=== PATIENT | female | born 1955 | race Caucasian/White ===

== ENCOUNTER 2024-01-24 14:18 | Emergency (ER) | payer MEDICARE, SELFPAY ==
[2024-01-24 14:20] VITALS: BP 139/77; PULSE 87; RESP 22; TEMP 35.9; O2SAT 97; BMI 25.2
[2024-01-24 16:12] LABS: Mucous, Urine 0 SEEN /hpf (<or=2+)
--- NOTE | 2024-01-24 16:17 | ED.VIS.GI ---
HPI HPI - GI History of Present Illness Chief Complaint: Flank Pain Informant: patient Abdominal Pain/Flank Pain Onset: Today and Hours (4) Context: Sudden Onset Timing: Continuous Quality: Cramping and Sharp Location: LUQ, LLQ and Left Flank Worsened by: Nothing Relieved by: - (Analgesics) Nausea/Vomiting/Emesis GI Symptom: Positive for Nausea and Vomiting Quality: Positive for Nonbilious; Negative for Blood streaks, Coffee ground or Hematemesis Diarrhea/Melena/Hematochezia GI Symptom: Negative for Diarrhea, Melena or Hematochezia Associated Symptoms Associated Symptoms: Positive for Hematuria; Negative for Dysuria or Frequency Narrative Narrative: Patient presents with abdominal and flank pain that began approximately 4 hours prior to arrival. Patient states it began rather suddenly. Patient states it has been constant. Patient describes the pain as sharp and cramping. Patient states it is mainly over the left side of her abdomen and left flank. Patient states that nothing makes it worse. Patient states that she took a pain pill while driving to the emergency department which has helped. Patient admits to some nausea and vomiting. Patient denies any diarrhea, melena, or hematochezia. Patient states that couple days ago she thought she noted some blood in her urine but was not having any pain at that time. [facility] Medical History (Updated 01/24/24 @ 18:[address] Solitario Smart DO) Peripheral arterial disease Kidney stones Home Medications ?Medication ?Instructions ?Recorded ?Last Taken ?Type amoxicillin 875 mg-potassium 875 mg PO Q12H #20 TABLETS 01/24/24 Unknown Rx clavulanate 125 mg tablet hydrocodone-acetaminophen 5-325mg 1 tab PO Q6H PRN PRN Pain 3 days 01/24/24 Unknown Rx 5mg-325mg #10 TABLETS Allergy/AdvReac Type Severity Reaction Status Date / Time ciprofloxacin Allergy Intermediate Rash Verified 01/24/24 14:22 Surgical History (Updated 01/24/24 @ 16:[address] Solitario Smart DO) S/P arterial stent Social History (Updated 01/24/24 @ 16:[address] Solitario Smart DO) Smoking Status: Current every day smoker tobacco type: cigarettes alcohol intake: current alcohol intake frequency: 0-2 drinks per day ROS ROS ED Constitutional Constitutional ED: Reports fever(s) and subjective; Denies chills Eyes Eyes: Denies blurry vision or change in vision ENT ENT ED: Denies rhinorrhea or sore throat Cardiovascular Cardiovascular: Denies chest pain or palpitations Respiratory/Chest Respiratory/Chest: Denies cough or dyspnea Gastrointestinal Gastrointestinal: Reports abdominal pain, nausea and vomiting Genitourinary Genitourinary ED: Reports hematuria; Denies dysuria Musculoskeletal Musculoskeletal: Reports back pain; Denies neck pain Integumentary Denies abscess or rash Neurologic Neurologic: Denies headache(s) or weakness Allergic/Immunologic Allergic/Immunologic ED: Denies mouth swelling or urticaria EXAM Physical Exam Const Vital Signs: 01/24/24 14:20 01/24/24 16:18 Temperature 96.6 F L Temperature Source Temporal Pulse Rate 87 87 Respiratory Rate 22 H 17 Blood Pressure 139/77 H 158/89 H Blood Pressure Mean 97 112 Pulse Ox 97 98 Oxygen Delivery Method Room Air Room Air Positive well nourished and well developed General Appearance ED: well developed and NAD HEENT Reports moist mucous membranes Neck supple and no JVD Resp normal respiratory effort and clear to auscultation bilaterally Cardio regular rate and regular rhythm GI non-distended Palpation: soft and tender LLQ and LUQ; Negative for guarding or rebound tenderness present Back/Spine General Back: CVA tenderness left Extremity full ROM General Extremety ED: Negative for edema or tenderness General Extremity: Negative for edema Neuro CN's II-XII intact bilaterally, moves all extremities and no sensory deficits noted Sensorium / Orientation: alert Motor Exam: strength 5/5 throughout Psych mental status grossly normal MDM MDM MDM Narrative Medical decision making narrative: Differential diagnosis includes ureteral calculus, pyelonephritis, diverticulitis, colitis, ovarian cyst, bowel obstruction, perforation, and pancreatitis. CT scan of the abdomen pelvis will be obtained to assess for ureteral calculus, bowel obstruction, and perforation. CBC will be obtained to assess for leukocytosis and anemia. Comprehensive metabolic profile will be obtained to assess for hepatic function, renal function, and electrolyte abnormality. Lipase will be obtained to assess for pancreatitis. Urinalysis will be obtained to assess for urinary tract infection and hematuria. Lab Data Attestation: I reviewed the patient's lab results. Lab results narrative: CBC was reviewed. There is a leukocytosis of 18.6. Hemoglobin was 16.7 and hematocrit is 51.3. Comprehensive metabolic profile was reviewed. Potassium was low at 3.0. AST was slightly elevated at 58 and ALT was slightly elevated at 84. Glucose was slightly elevated at 117. The remainder was essentially within normal limits. Lipase was reviewed and was normal at 22. Urinalysis was reviewed. There were urine ketones of 150. Occult blood was 250 with 10-25 red blood cells. There are positive nitrites. Leukocyte esterase was 500 with 25-50 white blood cells. There is 1+ bacteria. Labs: Laboratory Results - last 24 hr 01/24/24 01/24/24 15:55 15:56 WBC 18.6 H RBC 5.44 H Hgb 16.7 H Hct 51.3 H MCV 94.3 MCH 30.7 MCHC 32.6 RDW Std Deviation 43.9 RDW Coeff of Dneiz 12.7 Plt Count 179 MPV 11.3 Immature Gran % (Auto) 0.500 Neut % (Auto) 89.6 H Lymph % (Auto) 5.2 L [place]oll[place] % (Auto) 4.4 Eos % (Auto) 0.1 Baso % (Auto) 0.2 Absolute Neuts (auto) 16.6 H Absolute Lymphs (auto) 0.96 Nucleated RBC % 0 Sodium 138 Potassium 3.0 L Chloride 103 Carbon Dioxide 27.0 Anion Gap 8 BUN 19 H Creatinine 0.80 Estim Creat Clear Calc 64.54 Est GFR (MDRD) Af Amer 91 Est GFR (MDRD) Non-Af 75 BUN/Creatinine Ratio 23.7 H Glucose 117 H Calcium 10.0 Total Bilirubin 0.80 AST 50 H ALT 84 H Alkaline Phosphatase 103 Total Protein 7.8 Albumin 4.1 Globulin 3.7 Albumin/Globulin Ratio 1.1 Lipase 22 Urine Color Yellow Urine Clarity Cloudy Urine pH 5.0 Ur Specific [place] 1.030 Urine Protein 30 H Urine Glucose (UA) Normal Urine Ketones 150 A* Urine Occult Blood 250 H Urine Nitrite Positive H Urine Bilirubin Negative Urine Urobilinogen 1 H Ur Leukocyte Esterase 500 H Urine RBC 10-25 SEEN Urine WBC 25-50 SEEN Ur Squamous Epith Cells 0-5 SEEN Calcium Oxalate Crystal 1+ Urine Bacteria 1+ Urine Mucus 0 SEEN Radiography Diagnostic Testing: Clinical Impression(s) from Imaging Studies Abdomen/Pelvis CT 01/24/24 16:24 IMPRESSION: Moderate to severe left hydronephrosis secondary to large calculus in the mid ureter measuring approximately 5 mm in size. Tiny nonobstructing right renal calculus. Cholelithiasis without evidence for acute cholecystitis Electronically Signed: Ben Sanford MD at 17:11 EDT , CT scan of the abdomen pelvis was obtained. There is moderate to severe left hydronephrosis secondary to large calculus in the mid ureter measuring approximately 5 mm. There is cholelithiasis but no evidence of cholecystitis. There is a nonobstructing right renal calculus. This was interpreted by the radiologist was also independently reviewed by myself. Additional Tests and Interventions Additional Tests or Interventions: Urine culture was ordered. Treatment and Re-Evaluation :: Patient was given IV fluids, Toradol, morphine, and Zofran. Patient was feeling better on reevaluation. Patient was advised of her findings. Case was discussed with Dr. Shetty. He stated that the patient can have a trial of outpatient treatment with oral antibiotics and analgesics. Patient would prefer to go home. Patient was advised that any fevers or chills, nausea, vomiting, or if worse in any way, she should return to the emergency department. Patient was given a prescription for a short course of [place] and a prescription for Augmentin. Patient was instructed to follow-up with urology in 5 to 7 days. Patient was instructed return if worse in any way. Patient understood and was agreeable with the plan. All questions were answered. Discharge Plan Triage Chief Complaint: Flank Pain ED Provider: Solitario Smart Dx/Rx/DC Orders Clinical Impression: Left ureteral calculus, Pyelonephritis Instructions: ED Pyelonephritis, Female (Adult), ED Kidney Stone with Pain Prescriptions: New hydrocodone-acetaminophen 5-325 mg tablet 1 tab PO Q6H PRN PRN (Reason: Pain) 3 Days Qty: 10 0RF amoxicillin-pot clavulanate 875-125 mg tablet 875 mg PO Q12H Qty: 20 0RF Primary Care Provider: STEPHEN DUKE Referrals: STEPHEN DUKE [Other] Wang Shetty MD [Med Staff - Active Staff] - 3-5 Days Print Language: Luxembourgish Disposition Disposition: Home, Self Care
[2024-01-24 16:18] VITALS: BP 158/89; PULSE 87; RESP 17; O2SAT 98
[2024-01-24 16:18] LABS: Color, Urine Yellow (Yellow); Glucose, Dipstick Normal (Normal); Leukocyte Esterase-Dipstick 500 /ul (Negative); Nitrite-Dipstick Positive (Negative); Occult Blood-Urine 250 /ul (Negative); Protein-Dipstick 30 mg/dl (Negative); Urine Bilirubin Dipstick Negative (Negative); Urine Clarity Cloudy (Clear); Urine Urobilinogen 1 mg/dl (Normal)
--- NOTE | 2024-01-24 16:24 | CT_ITS ---
STUDY: CT ABDOMEN AND PELVIS WITHOUT CONTRAST REASON FOR EXAM: Female, 69 years old. Pain RADIATION DOSAGE (If Supplied By Facility): CTDIvol = ( 9.16 ) mGy, DLP = ( 444.11 ) mGycm TECHNIQUE: Transaxial images were obtained from the dome of the diaphragm to the symphysis pubis without oral contrast, and without intravenous contrast. Sagittal and coronal images were reconstructed. Individualized dose optimization techniques were used for this CT. COMPARISON: None. FINDINGS: Mild bibasilar interstitial thickening.. The visualized portions of the heart are within normal limits except for possible lipoma of the interatrial septum of uncertain clinical significance. This may be further assessed with echocardiography or MRI if clinically warranted The liver is enlarged and fatty infiltrated without mass or bile duct dilatation. Tiny calcified gallbladder without evidence for acute pericholecystic inflammation . Normal spleen. Normal pancreas. Normal bilateral adrenal glands. Tiny nonobstructing right renal calculus. No evidence for renal obstruction or mass.. Tiny nonobstructing left renal calculus. Moderate to severe left renal obstruction with stranding in the perinephric fat as well as prominence of the left ureter secondary to calculus in the mid ureter measuring approximately 5 mm in size Normal visualized stomach. Normal small intestine. Minor diverticular changes of sigmoid colon without evidence for acute diverticulitis The appendix is visualized and appears normal. Atherosclerotic changes of the aorta without evidence for aneurysm. Bilateral common iliac grafts are noted Normal inferior vena cava. Normal retroperitoneum. Incompletely distended thick walled bladder likely of no significance. Normal abdominal wall. Lumbar spine demonstrates mild spondylosis. CT/Abdomen/Pelvis without Cont IMPRESSION: Moderate to severe left hydronephrosis secondary to large calculus in the mid ureter measuring approximately 5 mm in size. Tiny nonobstructing right renal calculus. Cholelithiasis without evidence for acute cholecystitis Electronically Signed: Ben Sanford MD at 17:11 EDT ,
[2024-01-24 16:31] LABS: Ketone-Dipstick 150 mg/dl (Negative)
[2024-01-24 16:33] LABS: White Blood Cells 25-50 SEEN /hpf (0-5)
[2024-01-24 16:34] LABS: Bacteria 1+ /hpf (None Seen); Calcium Oxalate Crystals Ur 1+ /hpf (<or=2+); Red Blood Cells-Urine 10-25 SEEN /hpf (0-5); Squamous Epithelial Cells - UA 0-5 SEEN /hpf (5-10)
[2024-01-24] MEDS: Ondansetron 4 MG/2 ML Vial IV (16:36)
[2024-01-24] MEDS: 0.9% Normal Saline (1000mL) 1,000 ML 999 ML IV (16:36)
[2024-01-24] MEDS: Ketorolac 30 MG/ML Syringe 15 MG IV (16:37)
[2024-01-24] MEDS: Morphine 4 MG/ML Syringe IV (16:38)
[2024-01-24 16:48] LABS: Absolute Lymphocyte Count 0.96 X10^3/uL (0.83-4.51); Absolute Neutrophil Count 16.6 X10^3/uL (2.0-7.7); Basophil# 0.04 X10^3/uL; Basophil% 0.2 % (0-1); Eosinophil# 0.01 X10^3/uL; Eosinophils% 0.1 % (0-5); Hematocrit 51.3 % (37-47); Hemoglobin 16.7 g/dL (12.0-15.0); Lymphocyte # 0.96 X10^3/ul (0.83-4.51); Lymphocyte % 5.2 % (19-41); Mean Corp Hgb Conc 32.6 g/dL (32-36); Mean Corpuscular Hgb 30.7 pg (27.0-32.0); Mean Corpuscular Volume 94.3 fL (81-99); Mean Platelet Vol. 11.3 fl (6.2-12.0); Monocyte# 0.81 X10^3/uL; Monocyte% 4.4 % (0-10); NRBC Flagged by Analyzer 0 % (0-5); Neutrophil # 16.64 X10^3/uL (2.7-7.7); Neutrophil % 89.6 % (47-70); Platelet Count 179 K/mm3 (150-450); RBC Distribution Width CV 12.7 % (11.6-14.6); RBC Distribution Width SD 43.9 fl (35.1-43.9); Red Blood Count 5.44 M/mm3 (4.2-5.4); White Blood Count 18.6 K/mm3 (4.4-11.0)
[2024-01-24 17:13] LABS: ALB/GLOB Ratio 1.1 RATIO (0.9-2.4); AST(SGOT) 50 U/L (15-37); Alanine Aminotransfer ALT/SGPT 84 U/L (13-56); Albumin, Serum 4.1 g/dL (3.2-5.0); Alkaline Phosphatase 103 U/L (45-117); Anion Gap 8 (5-15); BUN 19 mg/dL (7-18); BUN/Creat Ratio 23.7 RATIO (10-20); Chloride 103 mmol/L (98-107); EST Glomerular Filtration Rate 75 mL/min (>60); Est Glom Filt Rate - Afr Amer 91 mL/min (>60); Estimated Creatinine Clearance 64.54 ml/min; Globulin 3.7 g/dL (2.2-4.2); Glucose 117 mg/dL (74-106); Lipase 22 U/L (13-75); Protein, Total 7.8 g/dL (6.4-8.2); Sodium Level 138 mmol/L (136-145)
[2024-01-24 18:00] VITALS: BP 148/87; PULSE 88; RESP 18; O2SAT 98
[2024-01-24 18:12] VITALS: BP 148/87; PULSE 81; RESP 17; TEMP 36.8; O2SAT 98
[2024-01-24] MEDS: Ceftriaxone 1 GM/50 ML BAG IV (18:31)
[2024-01-24] MEDS: Potassium Chloride Oral Tablet 20 MEQ 40 MEQ PO (18:50)
== END 2024-01-24 18:54 | disposition home or self-care (01) ==
PROVIDERS: Emergency Provider Emergency Medicine; Visit Provider Emergency Medicine
DX: N13.2 Hydronephrosis with renal and ureteral calculous obstruction (principal); F17.210 Nicotine dependence, cigarettes, uncomplicated; N12 Tubulo-interstitial nephritis, not specified as acute or chronic
CPT/HCPCS: 74176; 80053; 81001; 83690; 85025; 87040; 87077; 87086; 87088; 87186; 96365; 96375; 96376; 99282; J7030; A4216; J2405

== ENCOUNTER 2024-02-11 20:01 | Inpatient (IN) | payer MEDICARE, SELFPAY ==
[2024-02-11 20:02] VITALS: BP 110/60; PULSE 89; RESP 18; TEMP 36.7; O2SAT 93; BMI 25.2
--- NOTE | 2024-02-11 20:32 | CT_ITS ---
EXAM: CT ABDOMEN AND PELVIS WITHOUT INTRAVENOUS CONTRAST CLINICAL INDICATION: left flank pain TECHNIQUE: Helically acquired images were obtained of the abdomen and pelvis without intravenous contrast. This CT exam was performed using one or more of the following dose reduction techniques: automated exposure control, adjustment of the mA and/or kV according to patient size, and/or use of iterative reconstruction technique. RADIATION DOSE: Total DLP: 370.32 mGy-cm. COMPARISON: Abdomen CT of 01/24/2024 FINDINGS: LOWER THORAX: Dependent atelectasis is present bilaterally. No pleural effusion. No coronary artery calcification is visualized. 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 No significant pericardial effusion. ABDOMEN: LIVER: Severe fatty infiltration of the liver is demonstrated. GALLBLADDER AND BILE DUCTS: Gallbladder remains normal in size and contains a tiny calcified stone. No findings of acute cholecystitis or biliary duct ductal dilatation. PANCREAS: Unremarkable. No focal cystic mass. SPLEEN: Borderline enlarged measuring 12.5 cm in cephalocaudal dimension. No focal cystic or solid mass. ADRENALS: Unremarkable. No nodules. KIDNEYS AND URETERS: Left kidney remains enlarged and edematous, with perirenal stranding. Severe left hydronephrosis is present, and the degree of hydronephrosis has increased since the prior exam. A 5 mm lobulated obstructing stone is again seen within the middle third of the left ureter; this stone has moved distally within the left ureter by about 2 cm since the prior study. A second stone measuring 4 mm in length is seen within the dependent portion of the dilated mid left ureter proximal to the obstructing ureteral stone, and this left second left ureteral stone is nonobstructing. Punctate nonobstructing stone is again noted within the upper pole collecting system of the left kidney. Right kidney remains normal in size. A punctate nonobstructing stone is seen within the right renal lower pole collecting system. No right-sided hydronephrosis or right ureteral stone. STOMACH AND BOWEL: Unremarkable. No stomach or bowel distention. No focal inflammatory change. PELVIS: APPENDIX: No evidence of acute appendicitis. BLADDER: Partially distended urinary bladder is unremarkable. REPRODUCTIVE: Uterus is normal in size. No adnexal mass. ABDOMEN and PELVIS: INTRAPERITONEAL SPACE: Unremarkable. No ascites or other fluid collection. No free air. BONES/JOINTS: No acute osseous abnormality. Mild lumbar degenerative spurring. Lumbar facet arthritis. No acute osseous abnormality. No suspicious lytic or blastic abnormality. SOFT TISSUES: Unremarkable. No discrete abdominal or pelvic wall hernia. VASCULATURE: Unremarkable. Abdominal aorta is non-dilated. LYMPH NODES: No enlarged lymph nodes. CT/Abdomen/Pelvis without Cont IMPRESSION: 5 mm obstructing stone again noted within the middle third of the left ureter; this ureteral stone has moved distally by about 2 cm since the prior CT of 01/24/2024. Degree of left-sided hydronephrosis has increased with severe left hydronephrosis now present. Additional nonobstructing stone noted within the dilated left ureter. Punctate nonobstructing stone noted within each intrarenal collecting system. Cholelithiasis without evidence for cholecystitis. Electronically Signed: Francisco Benedict MD at 22:50 EDT ,
--- NOTE | 2024-02-11 20:33 | EDS_ITS ---
HPI History of Present Illness Chief Complaint: Flank Pain Detail of Chief Complaint: Left flank pain Informant: patient Narrative Narrative: Patient presents with left-sided flank pain that started 2 weeks ago. She was seen in the emergency department here and diagnosed with a kidney stone is 5 mm and apparently started on antibiotics. Patient was traveling through our town visiting her sister and then going up the [facility] back. She has continued to have pain since that time. She was seen in the hospital [place] [facility] [place] ago and diagnosed with a 9 mm stone in the swollen kidney and was told he could not do anything because they did not have urology apparently. Patient drove back 11 hours today to come to our hospital to be seen again. Patient complains of intermittent fever and nausea. [facility] Medical History (Updated 02/11/24 @ 23:[address] Osmany Colbert, DO) Peripheral arterial disease Kidney stones Home Medications ?Medication ?Instructions ?Recorded ?Last Taken ?Type hydrocodone-acetaminophen 5-325mg 1 tab PO Q6H PRN PRN Pain 3 days 01/24/24 Unknown Rx 5mg-325mg #10 TABLETS clopidogrel 75 mg tablet 75 mg PO DAILY 02/11/24 Unknown History rosuvastatin 40 mg tablet (Crestor) 10 mg PO DAILY cholesterol 02/11/24 Unknown History Allergy/AdvReac Type Severity Reaction Status Date / Time ciprofloxacin Allergy Intermediate Rash Verified 02/11/24 20:04 Surgical History S/P arterial stent Social History (Updated 01/24/24 @ 16:[address] Solitario Smart, DO) Smoking Status: Current every day smoker tobacco type: cigarettes alcohol intake: current alcohol intake frequency: 0-2 drinks per day ROS ROS ED Review of Systems ROS Unobtainable: other Constitutional Constitutional ED: Reports fever(s) and lethargy; Denies chills, sweats or weight loss Eyes Eyes: Denies blurry vision, change in vision or diplopia ENT ENT ED: Denies rhinorrhea or sore throat Cardiovascular Cardiovascular: Denies chest pain, orthopnea or racing heartbeat Respiratory/Chest Respiratory/Chest: Reports dyspnea and dyspnea on exertion; Denies cough, orthopnea or sputum Gastrointestinal Gastrointestinal: Reports abdominal pain; Denies diarrhea, nausea or vomiting Genitourinary Genitourinary ED: Denies dysuria, hematuria or urinary frequency Musculoskeletal Musculoskeletal: Denies arthralgias, back pain, myalgias or neck pain Integumentary Denies abscess, Abrasions or rash Neurologic Neurologic: Denies headache(s) or weakness Psychiatric Psychiatric: Denies anxiety, depression or suicidal thoughts Endocrine Endocrinology: Denies polydipsia, polyphagia or polyuria Hematologic/Lymphatic Hematologic/Lymphatic: Denies easy bleeding, easy bruising or lymphadenopathy Allergic/Immunologic Allergic/Immunologic ED: Denies mouth swelling, tongue swelling or urticaria EXAM Physical Exam Const Vital Signs: 02/11/24 20:02 02/11/24 22:04 02/11/24 23:00 Temperature 98.1 F 97.9 F 96.8 F L Temperature Source Temporal Oral Temporal Pulse Rate 89 74 73 Respiratory Rate 18 14 18 Blood Pressure 110/60 113/50 L 96/62 Blood Pressure Mean 76 71 73 Pulse Ox 93 90 91 Oxygen Delivery Method Room Air Room Air Room Air Positive well nourished and well developed General Appearance ED: well developed and NAD HEENT Reports TM's clear and moist mucous membranes normocephalic and atraumatic; Negative for trauma or tenderness Tympanic Membrane ED: Yes TM's clear Eyes PERRL and EOMs intact bilaterally General Eye ED: Negative for pale conjunctiva or scleral icterus Neck no lymphadenopathy, supple and no JVD General: Negative for tenderness Chest Wall inspection of chest normal and palpation of chest normal Chest: Negative for tenderness Resp normal respiratory effort and clear to auscultation bilaterally Effort and Inspection: Negative for respiratory distress or pain with movement Auscultation: Negative for rhonchi, wheezes or diminished lung sounds Cardio regular rate, regular rhythm, S1 normal heart sound, S2 normal heart sound and no murmurs Peripheral Pulses: pulses 2+ throughout GI normal to inspection, nondistended, normoactive bowel sounds, soft to palpation, non-distended and no masses GI Narrative: Mild diffuse tenderness over the left lower quadrant and left upper quadrant with some guarding. There is no rebound, rigidity, or pineal signs. No mass palpated. Back/Spine no thoracic nor lumbar tenderness; Negative for no CVA tenderness Back/Spine Narrative: CVA tenderness on the left. Extremity normal to inspection General Extremety ED: Negative for edema General Extremity: Negative for edema Neuro oriented x3, CN's II-XII intact bilaterally, no sensory deficits noted and gait normal Sensorium / Orientation: awake, alert, oriented to person, oriented to place and oriented to time Motor Exam: strength 5/5 throughout and strength abnormal Psych mental status grossly normal Skin no rashes or lesions noted and no wounds MDM MDM MDM Narrative Medical decision making narrative: Patient presents with left flank pain that she has had for about 2 weeks. Patient diagnosed with a kidney stone and pain is not resolved. She was seen in [place] 2 days ago and was told she had a 9 mm stone with hydro and she drove back today to be seen here. Pain is 10 out of 10. IV line established. Patient was medicated with Toradol and morphine and Zofran. CBC with differential obtained showed a white count of 12.1 with hemoglobin 13.3 and platelet count of 225. Chemistries unremarkable. Lactate was normal at 1.4. Urinalysis was positive for infection. Patient was started on Rocephin 1 g IV. Patient had a CT scan of the abdomen pelvis without contrast that showed a 5 mm obstructing stone again noted within the middle third of the left ureter this ureteral stone is moved distally by about [address] 2 weeks ago. There was degree of left-sided hydronephrosis that has increased and is now severe. Additional nonobstructing stone noted within the dilated left ureter. At this point discussed results with patient. I do not have urology coverage and recommended transfer to another facility for definitive care. Patient initially would prefer one of the [facility] however both [facility] and [facility] were not accepting transfers due to capacity. [facility] also not accepting transfers. It is noted that we have urology coverage starting at 7 AM tomorrow. Discussed case with hospitalist will evaluate patient for admission. I do not think patient is septic. Lab Data Labs: Laboratory Results - last 24 hr 02/11/24 20:42 WBC 12.1 H RBC 4.31 Hgb 13.3 Hct 39.7 MCV 92.1 MCH 30.9 MCHC 33.5 RDW Std Deviation 43.0 RDW Coeff of Deniz 12.6 Plt Count 225 MPV 9.9 Immature Gran % (Auto) 0.500 Neut % (Auto) 78.2 H Lymph % (Auto) 12.4 L [place] % (Auto) 7.9 Eos % (Auto) 0.5 Baso % (Auto) 0.5 Absolute Neuts (auto) 9.5 H Absolute Lymphs (auto) 1.51 Nucleated RBC % 0 Sodium 135 L Potassium 3.1 L Chloride 99 Carbon Dioxide 27.0 Anion Gap 9 BUN 14 Creatinine 0.92 Estim Creat Clear Calc 56.12 Est GFR (MDRD) Af Amer 78 Est GFR (MDRD) Non-Af 64 BUN/Creatinine Ratio 15.2 Glucose 121 H Lactic Acid 1.4 Calcium 9.1 Urine Color Yellow Urine Clarity Sl. Cloudy Urine pH 6.5 Ur Specific [place] 1.010 Urine Protein Negative Urine Glucose (UA) Normal Urine Ketones Negative Urine Occult Blood 25 H Urine Nitrite Positive H Urine Bilirubin Negative Urine Urobilinogen Normal Ur Leukocyte Esterase 500 H Urine RBC 0-5 SEEN Urine WBC 10-25 SEEN Ur Squamous Epith Cells 0-5 SEEN Urine Bacteria 2+ Urine Mucus 0 SEEN Radiography Diagnostic Testing: Clinical Impression(s) from Imaging Studies Abdomen/Pelvis CT 02/11/24 20:32 IMPRESSION: 5 mm obstructing stone again noted within the middle third of the left ureter; this ureteral stone has moved distally by about 2 cm since the prior CT of 01/24/2024. Degree of left-sided hydronephrosis has increased with severe left hydronephrosis now present. Additional nonobstructing stone noted within the dilated left ureter. Punctate nonobstructing stone noted within each intrarenal collecting system. Cholelithiasis without evidence for cholecystitis. Electronically Signed: Francisco Benedict MD at 22:50 EDT Reading Location ID and State: [facility] / [place] Tel , Service support , Discharge Plan Triage Chief Complaint: Flank Pain ED Provider: Osmany Colbert Dx/Rx/DC Orders Clinical Impression: Urolithiasis, Acute UTI, Leukocytosis Prescriptions: No Action clopidogrel 75 mg tablet 75 mg PO DAILY rosuvastatin [Crestor] 40 mg tablet 10 mg PO DAILY hydrocodone-acetaminophen 5-325 mg tablet 1 tab PO Q6H PRN PRN (Reason: Pain) 3 Days Qty: 10 0RF Primary Care Provider: NOT,DEFINED Referrals: NOT,DEFINED [Primary Care Provider] - Print Language: Mongolian Disposition Disposition: Acute Care [facility]
[2024-02-11] MEDS: Morphine 4 MG/ML Syringe IV (20:47)
[2024-02-11] MEDS: Ketorolac 15 MG/ML Vial IV (20:48)
[2024-02-11] MEDS: 0.9% Normal Saline (1000mL) 1,000 ML 150 ML IV (20:48)
[2024-02-11] MEDS: Ondansetron 4 MG/2 ML Vial IV (20:48)
[2024-02-11 21:00] LABS: Mucous, Urine 0 SEEN /hpf (<or=2+)
[2024-02-11 21:01] LABS: Absolute Lymphocyte Count 1.51 X10^3/uL (0.83-4.51); Absolute Neutrophil Count 9.5 X10^3/uL (2.0-7.7); Basophil# 0.06 X10^3/uL; Basophil% 0.5 % (0-1); Eosinophil# 0.06 X10^3/uL; Eosinophils% 0.5 % (0-5); Hematocrit 39.7 % (37-47); Hemoglobin 13.3 g/dL (12.0-15.0); Lymphocyte # 1.51 X10^3/ul (0.83-4.51); Lymphocyte % 12.4 % (19-41); Mean Corp Hgb Conc 33.5 g/dL (32-36); Mean Corpuscular Hgb 30.9 pg (27.0-32.0); Mean Corpuscular Volume 92.1 fL (81-99); Mean Platelet Vol. 9.9 fl (6.2-12.0); Monocyte# 0.96 X10^3/uL; Monocyte% 7.9 % (0-10); NRBC Flagged by Analyzer 0 % (0-5); Neutrophil # 9.49 X10^3/uL (2.7-7.7); Neutrophil % 78.2 % (47-70); Platelet Count 225 K/mm3 (150-450); RBC Distribution Width CV 12.6 % (11.6-14.6); Red Blood Count 4.31 M/mm3 (4.2-5.4); White Blood Count 12.1 K/mm3 (4.4-11.0)
[2024-02-11 21:04] LABS: Color, Urine Yellow (Yellow); Glucose, Dipstick Normal (Normal); Ketone-Dipstick Negative (Negative); Leukocyte Esterase-Dipstick 500 /ul (Negative); Nitrite-Dipstick Positive (Negative); Occult Blood-Urine 25 /ul (Negative); Protein-Dipstick Negative (Negative); Urine Bilirubin Dipstick Negative (Negative); Urine Clarity Sl. Cloudy (Clear); Urine Urobilinogen Normal (Normal); Urine pH 6.5 (5.0 - 8.0)
[2024-02-11 21:14] LABS: Bacteria 2+ /hpf (None Seen); White Blood Cells 10-25 SEEN /hpf (0-5)
[2024-02-11 21:15] LABS: Red Blood Cells-Urine 0-5 SEEN /hpf (0-5); Squamous Epithelial Cells - UA 0-5 SEEN /hpf (5-10)
[2024-02-11 21:16] LABS: Anion Gap 9 (5-15); BUN 14 mg/dL (7-18); BUN/Creat Ratio 15.2 RATIO (10-20); Calcium,Total 9.1 mg/dL (8.5-10.1); Chloride 99 mmol/L (98-107); Creatinine, Serum 0.92 mg/dL (0.55-1.02); EST Glomerular Filtration Rate 64 mL/min (>60); Est Glom Filt Rate - Afr Amer 78 mL/min (>60); Estimated Creatinine Clearance 56.12 ml/min; Glucose 121 mg/dL (74-106); Potassium 3.1 mmol/L (3.5-5.1); Sodium Level 135 mmol/L (136-145)
[2024-02-11 21:50] LABS: Lactic Acid 1.4 mmol/L (0.4-1.9)
[2024-02-11 22:04] VITALS: BP 113/50; PULSE 74; RESP 14; TEMP 36.6; O2SAT 90
[2024-02-11] MEDS: Ceftriaxone 1 GM/50 ML BAG IV (22:10)
[2024-02-11 23:00] VITALS: BP 96/62; PULSE 73; RESP 18; TEMP 36; O2SAT 91
[2024-02-11 23:51] VITALS: BP 130/57; PULSE 84; RESP 18; TEMP 36.6; O2SAT 92
[2024-02-11 23:52] VITALS: BP 130/57; PULSE 80; RESP 16; RESP 19; TEMP 36.6; O2SAT 92
--- NOTE | 2024-02-11 23:52 | HP.PCM.HOS_ITS ---
[facility] - General General Date of Admission: 02/12/24 Date of Service: 02/11/24 Chief Complaint: Left Flank Pain, Fevers and Nausea. [facility] Narrative LEROY RAMIRES, is a 69 F with a past medical history of hyperlipidemia, PAD; s/p stent on Plavix, history of UTI, listed Allergy to Cipro (rash) and recent evaluation in ER here on January 24, 2024 when she was diagnosed with an ~5 mm Left renal calculus in the mid-ureter who presents to [facility] ER complaining of worsening Left flank pain, fever and nausea. Ms. Ramires reports her symptoms began approximately 2 weeks prior to admission with Left flank pain and dysuria to kidney stone. She states she was started on antibiotics and told that she had a ~50/50 chance of passing the stone herself. The patient was traveling through [place] to visit her sister and then went back to [facility] ~2 days ago and became worse where they told her she had a ~9 mm stone and severe Left hydroureteronephrosis with recommendation to follow up with urology recommended urgently as they did not have a urologist so she decided to drive back ~11 hours to be seen here. She admits to intermittent fevers and nausea but she denies vomiting, dysuria, hematuria, diarrhea, constipation, chest pain or SOB. In the ER her CT scan of the abdomen and pelvis revealed the same ~5 mm stone about two centimeters distal to its previous location but is still in the Left mid-ureter with evidence of severe hydroureteronephrosis with Leukocytosis of 12.1K present on admission (with no signs of sepsis) and she was then started on empiric IV Rocephin and she was then admitted to the general medical floor for ongoing care for a stay that is expected to extend beyond 2 midnights. [facility] Medical History Peripheral arterial disease Kidney stones Home Medications ?Medication ?Instructions ?Recorded ?Last Taken ?Type hydrocodone-acetaminophen 5-325mg 1 tab PO Q6H PRN PRN Pain 3 days 01/24/24 Unknown Rx 5mg-325mg #10 TABLETS clopidogrel 75 mg tablet 75 mg PO DAILY blood thinner 02/11/24 Unknown History rosuvastatin 40 mg tablet (Crestor) 10 mg PO DAILY cholesterol 02/11/24 Unknown History Allergy/AdvReac Type Severity Reaction Status Date / Time ciprofloxacin Allergy Intermediate Rash Verified 02/11/24 20:04 Surgical History S/P arterial stent Social History Smoking Status: Current every day smoker tobacco type: cigarettes alcohol intake: current alcohol intake frequency: 0-2 drinks per day ROS ROS Narrative Review of systems: Constitutional: Patient admits to fever, chills and lethargy. Eyes: Patient denies changes in vision or discharge from eyes. ENT: Patient denies runny nose, sore throat or ear pain. CV: Patient denies chest pain or palpitations. Respiratory: Patient denies SOB or cough. GI: Patient admits to abdominal pain but denies nausea or vomiting. : Patient admit to Left flank pain but she denies dysuria, hematuria or urinary frequency. MSK: Patient denies myalgias but denies arthralgias. Skin: Patient denies rash, abscess or jaundice. Neuro: Patient denies headache, paresthesias, seizures or focal neurologic deficits. Allergy: Patient denies lip swelling, tongue swelling or urticaria. Psychology: Patient denies symptoms related to uncontrolled depression or anxiety. Hematology: Patient denies easy bleeding or easy bruisability. Endocrinology: Patient denies polyuria, polydipsia and polyphagia. 14 point ROS otherwise negative except for positives noted above. Vital Signs Vital Signs Vital Signs: 02/11/24 20:02 02/11/24 22:04 02/11/24 23:00 Temperature 98.1 F 97.9 F 96.8 F L Temperature Source Temporal Oral Temporal Pulse Rate 89 74 73 Respiratory Rate 18 14 18 Blood Pressure 110/60 113/50 L 96/62 Blood Pressure Mean 76 71 73 Pulse Ox 93 90 91 Oxygen Delivery Method Room Air Room Air Room Air 02/11/24 23:51 Temperature 97.9 F Temperature Source Pulse Rate 84 Respiratory Rate 18 Blood Pressure 130/57 H Blood Pressure Mean 81 Pulse Ox 92 Oxygen Delivery Method Weight Weight: 161 lb 4 oz Body Mass Index (BMI) 25.2 Physical Exam Const alert, oriented x3, no apparent distress, average body habitus and healthy appearing General Appearance: cooperative HEENT normocephalic, head/scalp atraumatic, hearing grossly normal bilaterally and moist oral mucous membranes Eyes PERRL and EOMs intact bilaterally Neck no lymphadenopathy and supple Resp normal respiratory effort, no retractions and no use of accessory muscles Cardio regular rate and regular rhythm GI normal to inspection, nondistended, normoactive bowel sounds, soft to palpation, non-tender and non-distended Extremity normal to inspection, full ROM and no clubbing, cyanosis or edema Skin Skin Narrative: Patient has no evidence of rash, abscess or jaundice. Neuro oriented x3, CN's II-XII intact bilaterally, moves all extremities and no focal motor deficits Sensorium / Orientation: awake, alert, oriented to person, oriented to place and oriented to time Psych affect normal Results Medical Records Data Attestation: I reviewed the patient's medical records Lab / Micro Data Attestation: I reviewed the patient's lab results. 02/12/24 04:17 02/12/24 04:17 Labs: Laboratory Results - last 24 hr 02/11/24 20:42: WBC 12.1 H, RBC 4.31, Hgb 13.3, Hct 39.7, MCV 92.1, MCH 30.9, MCHC 33.5, RDW Std Deviation 43.0, RDW Coeff of Deniz 12.6, Plt Count 225, MPV 9.9, Immature Gran % (Auto) 0.500, Neut % (Auto) 78.2 H, Lymph % (Auto) 12.4 L, [place] % (Auto) 7.9, Eos % (Auto) 0.5, Baso % (Auto) 0.5, Absolute Neuts (auto) 9.5 H, Absolute Lymphs (auto) 1.51, Nucleated RBC % 0, Sodium 135 L, Potassium 3.1 L, Chloride 99, Carbon Dioxide 27.0, Anion Gap 9, BUN 14, Creatinine 0.92, Estim Creat Clear Calc 56.12, Est GFR (MDRD) Af Amer 78, Est GFR (MDRD) Non-Af 64, BUN/Creatinine Ratio 15.2, Glucose 121 H, Lactic Acid 1.4, Calcium 9.1, Urine Color Yellow, Urine Clarity Sl. Cloudy, Urine pH 6.5, Ur Specific [place] 1.010, Urine Protein Negative, Urine Glucose (UA) Normal, Urine Ketones Negative, Urine Occult Blood 25 H, Urine Nitrite Positive H, Urine Bilirubin Negative, Urine Urobilinogen Normal, Ur Leukocyte Esterase 500 H, Urine RBC 0-5 SEEN, Urine WBC 10-25 SEEN, Ur Squamous Epith Cells 0-5 SEEN, Urine Bacteria 2+, Urine Mucus 0 SEEN Imaging Radiology Impression Abdomen/Pelvis CT 02/11/24 20:32 IMPRESSION: 5 mm obstructing stone again noted within the middle third of the left ureter; this ureteral stone has moved distally by about 2 cm since the prior CT of 01/24/2024. Degree of left-sided hydronephrosis has increased with severe left hydronephrosis now present. Additional nonobstructing stone noted within the dilated left ureter. Punctate nonobstructing stone noted within each intrarenal collecting system. Cholelithiasis without evidence for cholecystitis. Electronically Signed: Francisco Benedict MD at 22:50 EDT , Assessment & Plan Assessment/Plan (1) Kidney stones: (2) Hydroureter, left: (3) Leukocytosis: QUALIFIERS: Leukocytosis type: unspecified Qualified Code(s): D 72.829 - Elevated white blood cell count, unspecified (4) Peripheral arterial disease: PLAN: Plan 1. ~5 mm stone about two centimeters distal to its previous location but is still in the Left mid-ureter with evidence of severe hydroureteronephrosis with Leukocytosis of 12.1K present on admission (with no signs of sepsis) with patient originally diagnosed on January 24, 2024 with subsequent failure of stone to pass - Admit to general medical floor. Keep NPO except medications, sips and ice chips. Continue empiric IV Rocephin begun in the ER and await culture & sensitivity data. Give Tylenol prn [id number] (level 1-5/10) pain or fever. Give Morphine IV prn for severe (level 6-10/10) pain. Give Zofran IV prn to control nausea and prevent vomiting. Finally, we will consult Dr. Shetty to see this patient on-rounds in the AM for further recommendations regarding stent placement in the Left ureter with help appreciated in advance. 2. PAD; s/p stent on Plavix complicating #1 - Hold Plavix until procedure can be completed and then restart when okay with urology. 3. Hyperlipidemia - Resume statin. 4. History of UTI - Noted. 5. Listed Allergy to Cipro (rash) - Avoid quinolone agents. 6. DVT prophylaxis - SCD's only. Avoid blood thinners with impending urologic procedure. Total time: Approximately 55 minutes. Charges/Coding Visit Charges Inpatient E&M: 59995 Init Hosp L2
[2024-02-12] VITALS (12 sets, daily range): BP systolic 100–148; BP diastolic 60–72; PULSE 72–85; RESP 16–18; TEMP 36.5–37.1; O2SAT 92–97; BMI 25.1; BMI 25.2
[2024-02-12] MEDS: KCL 20MEQ in 0.9% NS 20 MEQ/1,000 ML IV.SOLN. 100 MEQ IV ×2 (01:09→14:01)
[2024-02-12] MEDS: 0.9% Saline Lock 10 ML Syringe IV ×2 (02:57→07:45)
[2024-02-12] MEDS: Morphine 2 MG/ML Syringe IV ×2 (02:57→07:45)
[2024-02-12 05:34] LABS: Absolute Neutrophil Count 6.5 X10^3/uL (2.0-7.7); Basophil# 0.09 X10^3/uL; Eosinophils% 2.1 % (0-5); Hematocrit 39.4 % (37-47); Lymphocyte % 18.2 % (19-41); Mean Corpuscular Hgb 30.4 pg (27.0-32.0); Mean Corpuscular Volume 92.1 fL (81-99); Mean Platelet Vol. 10.3 fl (6.2-12.0); Monocyte# 0.77 X10^3/uL; Monocyte% 8.3 % (0-10); NRBC Flagged by Analyzer 0 % (0-5); Neutrophil # 6.51 X10^3/uL (2.7-7.7); Neutrophil % 69.9 % (47-70); Platelet Count 209 K/mm3 (150-450); RBC Distribution Width CV 12.7 % (11.6-14.6); RBC Distribution Width SD 42.6 fl (35.1-43.9); Red Blood Count 4.28 M/mm3 (4.2-5.4); White Blood Count 9.3 K/mm3 (4.4-11.0)
[2024-02-12 06:28] LABS: ALB/GLOB Ratio 0.6 RATIO (0.9-2.4); AST(SGOT) 29 U/L (15-37); Alanine Aminotransfer ALT/SGPT 27 U/L (13-56); Albumin, Serum 2.4 g/dL (3.2-5.0); Alkaline Phosphatase 73 U/L (45-117); Anion Gap 6 (5-15); BUN 14 mg/dL (7-18); BUN/Creat Ratio 21.1 RATIO (10-20); Calcium,Total 8.6 mg/dL (8.5-10.1); Chloride 104 mmol/L (98-107); Creatinine, Serum 0.66 mg/dL (0.55-1.02); EST Glomerular Filtration Rate 94 mL/min (>60); Est Glom Filt Rate - Afr Amer 113 mL/min (>60); Estimated Creatinine Clearance 64.54 ml/min; Globulin 3.7 g/dL (2.2-4.2); Glucose 105 mg/dL (74-106); Magnesium 2.2 mg/dL (1.6-2.6); Phosphorus 3.1 mg/dL (2.5-4.9); Potassium 3.4 mmol/L (3.5-5.1); Protein, Total 6.1 g/dL (6.4-8.2); Sodium Level 136 mmol/L (136-145); Thyroid Stim Hormone (TSH) 4.66 uIU/mL (0.358-3.74)
--- NOTE | 2024-02-12 07:51 | PCM.CONS.U ---
Assessment & Plan Assessment/Plan (1) Hydroureter, left: PLAN: Plan for cystoscopy left stent placement (2) Leukocytosis: QUALIFIERS: Leukocytosis type: unspecified Qualified Code(s): D72.829 - Elevated white blood cell count, unspecified HPI Consult Data Date of Consult: 02/12/24 HPI Narrative Reason for Consultation: Left obstructing kidney stones HPI Narrative: LEROY LOPEZ, is a 69 F who presents to the hospital with severe hydronephrosis on the left side 2 stones in the mid ureter with severe hydronephrosis. Plan is put on for surgery today for cystoscopy left stent placement for the obstruction. [facility] Medical History Peripheral arterial disease Kidney stones Home Medications ?Medication ?Instructions ?Recorded ?Last Taken ?Type hydrocodone-acetaminophen 5-325mg 1 tab PO Q6H PRN PRN Pain 3 days 01/24/24 Unknown Rx 5mg-325mg #10 TABLETS clopidogrel 75 mg tablet 75 mg PO DAILY blood thinner 02/11/24 Unknown History rosuvastatin 40 mg tablet (Crestor) 10 mg PO DAILY cholesterol 02/11/24 Unknown History Allergy/AdvReac Type Severity Reaction Status Date / Time ciprofloxacin Allergy Intermediate Rash Verified 02/11/24 20:04 Surgical History S/P arterial stent Social History Smoking Status: Current every day smoker tobacco type: cigarettes alcohol intake: current alcohol intake frequency: 0-2 drinks per day Lab / Micro Data 02/12/24 04:17 02/12/24 04:17 Labs: Laboratory Results - last 24 hr 02/11/24 20:42: WBC 12.1 H, RBC 4.31, Hgb 13.3, Hct 39.7, MCV 92.1, MCH 30.9, MCHC 33.5, RDW Std Deviation 43.0, RDW Coeff of Deniz 12.6, Plt Count 225, MPV 9.9, Immature Gran % (Auto) 0.500, Neut % (Auto) 78.2 H, Lymph % (Auto) 12.4 L, [place] % (Auto) 7.9, Eos % (Auto) 0.5, Baso % (Auto) 0.5, Absolute Neuts (auto) 9.5 H, Absolute Lymphs (auto) 1.51, Nucleated RBC % 0, Sodium 135 L, Potassium 3.1 L, Chloride 99, Carbon Dioxide 27.0, Anion Gap 9, BUN 14, Creatinine 0.92, Estim Creat Clear Calc 56.12, Est GFR (MDRD) Af Amer 78, Est GFR (MDRD) Non-Af 64, BUN/Creatinine Ratio 15.2, Glucose 121 H, Lactic Acid 1.4, Calcium 9.1, Urine Color Yellow, Urine Clarity Sl. Cloudy, Urine pH 6.5, Ur Specific [place] 1.010, Urine Protein Negative, Urine Glucose (UA) Normal, Urine Ketones Negative, Urine Occult Blood 25 H, Urine Nitrite Positive H, Urine Bilirubin Negative, Urine Urobilinogen Normal, Ur Leukocyte Esterase 500 H, Urine RBC 0-5 SEEN, Urine WBC 10-25 SEEN, Ur Squamous Epith Cells 0-5 SEEN, Urine Bacteria 2+, Urine Mucus 0 SEEN 02/12/24 04:17: WBC 9.3, RBC 4.28, Hgb 13.0, Hct 39.4, MCV 92.1, MCH 30.4, MCHC 33.0, RDW Std Deviation 42.6, RDW Coeff of Deniz 12.7, Plt Count 209, MPV 10.3, Immature Gran % (Auto) 0.500, Neut % (Auto) 69.9, Lymph % (Auto) 18.2 L, [place] % (Auto) 8.3, Eos % (Auto) 2.1, Baso % (Auto) 1.0, Absolute Neuts (auto) 6.5, Absolute Lymphs (auto) 1.70, Nucleated RBC % 0, Sodium 136, Potassium 3.4 L, Chloride 104, Carbon Dioxide 26.0, Anion Gap 6, BUN 14, Creatinine 0.66, Estim Creat Clear Calc 64.54, Est GFR (MDRD) Af Amer 113, Est GFR (MDRD) Non-Af 94, BUN/Creatinine Ratio 21.1 H, Glucose 105, Calcium 8.6, Phosphorus 3.1, Magnesium 2.2, Total Bilirubin 0.50, AST 29, ALT 27, Alkaline Phosphatase 73, Total Protein 6.1 L, Albumin 2.4 L, Globulin 3.7, Albumin/Globulin Ratio 0.6 L, TSH 4.66 H Imaging Radiology Impression Abdomen/Pelvis CT 02/11/24 20:32 IMPRESSION: 5 mm obstructing stone again noted within the middle third of the left ureter; this ureteral stone has moved distally by about 2 cm since the prior CT of 01/24/2024. Degree of left-sided hydronephrosis has increased with severe left hydronephrosis now present. Additional nonobstructing stone noted within the dilated left ureter. Punctate nonobstructing stone noted within each intrarenal collecting system. Cholelithiasis without evidence for cholecystitis. Electronically Signed: Francisco Benedict MD at 22:50 EDT ,
--- NOTE | 2024-02-12 12:03 | PRE.ANES_ITS ---
ASA Classification* ASA Classification ASA Classification: 3 Assessment & Plan Anesthesia* Anesthesia Assessment Anesthesia Assessment: Discussed sedation and/or anesthesia options, risks, benefits, and alternatives with patient/parents/legal guardian/POA. Questions invited. The patient/parents/legal guardian/POA seems to understand and agrees to proceed with anesthesia plan. Reviewed the physical assessment, medical history, allergy history and patient home medications list prior to surgery/procedure/anesthetic and documented any changes. Performed airway and anesthesia risk assessments. Anesthesia Type Anesthesia Type: MAC Anesthesia Focused Assessment* Temperature: 98.3 F Pulse Rate: 79 Blood Pressure: 122/60 Respiratory Rate: 16 Pulse Ox: 93 Airway Assessment Mouth opens: >3 cm Mallampati Score: II Focused Labs Anesthesia Preop lab: CBC WBC 9.3 K/mm3 (4.4-11.0) 02/12/24 04:17 RBC 4.28 M/mm3 (4.2-5.4) 02/12/24 04:17 Hgb 13.0 g/dL (12.0-15.0) 02/12/24 04:17 Hct 39.4 % (37-47) 02/12/24 04:17 Plt Count 209 K/mm3 (150-450) 02/12/24 04:17 CHEMISTRY Potassium 3.4 mmol/L (3.5-5.1) L 02/12/24 04:17 Sodium 136 mmol/L (136-145) 02/12/24 04:17 Magnesium 2.2 mg/dL (1.6-2.6) 02/12/24 04:17 Phosphorus 3.1 mg/dL (2.5-4.9) 02/12/24 04:17 BUN 14 mg/dL (7-18) 02/12/24 04:17 Creatinine 0.66 mg/dL (0.55-1.02) 02/12/24 04:17 Glucose 105 mg/dL (74-106) 02/12/24 04:17 TSH 4.66 uIU/mL (0.358-3.74) H 02/12/24 04:17 COAG Pre-Assessment Diagnosis/Proposed Procedure Planned Operative Procedure(s): Cystoscopy, stent placement Anesthesia History Anesthesia History - mechanic general operational test: Anesthesia History - mechanic general operational test Hx Hospitalization Any Problems With Anesthesia Cholinesterase deficiency You/Your Family Experience fever (hyperthermia) with Relationship Recent Exposure to Contagious Disease Does patient have nerve stimulator Patient instructed to have device shut off --Does patient have Pacemaker or ICD? When Was Last Pacemaker Check QUESTION #4 FULL TEXT: You/Your Family Experience fever (hyperthermia) with Anesthesia Last Oral Intake Last Oral intake: Last Oral Intake NPO since Meds taken in AM with sips of water? Meds patient instructed to take am of surgery PONV PONV - mechanic general operational test: PONV - mechanic general operational test Female HX of Motion Sickness HX of N/V After Surgery Non-Smoker Duration of Surgery greater than 60 minutes Number of Risk Factors PONV Score Height & Weight Height & Weight: Anesthesia: Height & Weight Height 5 ft 7 in 02/12/24 00:58 Weight: 72.83 kg 02/12/24 06:00 Body Mass Index (BMI) 25.2 02/12/24 06:00 Respiratory Assessment Respiratory Assessment - mechanic general operational test: Respiratory Tract Infection Hx - mechanic general operational test Hx Respiratory Tract Infection STOP Sleep Apnea STOP Sleep Apnea - mechanic general operational test: STOP Sleep Apnea - mechanic general operational test Hx Hypertension No 02/12/24 00:59 Hx Sleep Apnea No 02/12/24 00:59 CPAP BIPAP Do you snore loudly (louder Yes 02/12/24 00:59 than talking or can be heard Do you often feel tired/ No 02/12/24 00:59 fatigued/ sleepy during daytime? Has anyone observed you stop No 02/12/24 00:59 breathing during sleep? STOP Results Negative 02/12/24 00:59 QUESTION #5 FULL TEXT : Do you snore loudly (louder than talking or can be heard through closed doors)? Tobacco Use History Tobacco Use History - mechanic general operational test: Tobacco Use History - mechanic general operational test Tobacco Use Smoking Status Current every day smoker 02/12/24 00:59 Hx Tobacco Use Yes 02/12/24 00:59 Years Smoking Packs Smoked per Day Smoking Cessation Date was within the last 15 years Hx Smoking Cessation Date Hx Smoking Cessation No 02/12/24 00:59 Counseling Hematologic Medial History Hematologic Hx - mechanic general operational test: Hematologic Medical Hx - bitumastic applier Hx of Blood Transfusion No 02/12/24 00:59 Hx of Transfusion in last 3 No 02/12/24 00:59 Months Date of Last Transfusion (if within last 3 months) Ever experience any problems No 02/12/24 00:59 with transfusion(s)? Specify any problems Hx of Preganancy in last 3 No 02/12/24 00:59 Months Nurse Filling Out Transfusion DREKILLIAN 02/12/24 00:59 & Questions: Date: 02/12/24 02/12/24 00:59 Time: 01:00 02/12/24 00:59 Patient unable to answer at this time (ie. confused, unrespo /Reproduction History /Reproductive History - mechanic general operational test: /Reproductive Hx- mechanic general operational test Hx Now Gestational Age (in weeks): EDC: Hx Hx Para Hx Section SAB Active Medications Active Medications: Current Medications Generic Name Dose Route Start Last Admin Trade Name Freq PRN Reason Stop Dose Admin Acetaminophen 650 mg 02/12/24 00:50 Acetaminophen 325 Mg Tablet PO Q6H PRN PRN Pain 1-5/10 Or Fever Ceftriaxone Sodium 1 gm in 50 mls @ 100 mls/hr 02/12/24 22:00 Rocephin IV 2200 ELISHA Potassium Chloride/Sodium Chloride 20 meq in 1,000 mls @ 100 mls/hr 02/12/24 00:50 02/12/24 12:02 IV Not Given .Q10H ELISHA Sodium Chloride 250 mls @ 15 mls/hr 02/12/24 00:51 IV .[id number] PRN Additional IVPB Infusion Sodium Chloride 250 mls @ 15 mls/hr 02/12/24 00:51 IV .[id number] PRN Saline Flush Lactated Ringer's 1,000 mls @ 15 mls/hr 02/12/24 11:45 IV .Q48H ELISHA Melatonin 3 mg 02/12/24 00:50 Melatonin 3 Mg Tablet PO QHS PRN PRN INSOMNIA Morphine Sulfate 2 mg 02/12/24 00:50 02/12/24 07:45 Morphine 2 Mg/Ml Syringe IV 2 mg Q4H PRN PRN Administration Pain Score 6-10 Ondansetron HCl 4 mg 02/12/24 00:50 Ondansetron 4 Mg/2 Ml Vial IV Q6H PRN PRN NAUSEA/VOMITING Sodium Chloride 10 - 40 ml 02/12/24 00:51 02/12/24 07:45 0.9% Saline Lock 10 Ml Syringe IV 10 ml UD PRN Administration SALINE FLUSH PFSH Medical History Peripheral arterial disease Kidney stones Home Medications ?Medication ?Instructions ?Recorded ?Last Taken ?Type hydrocodone-acetaminophen 5-325mg 1 tab PO Q6H PRN PRN Pain 3 days 01/24/24 Unknown Rx 5mg-325mg #10 TABLETS clopidogrel 75 mg tablet 75 mg PO DAILY blood thinner 02/11/24 Unknown History rosuvastatin 40 mg tablet (Crestor) 10 mg PO DAILY cholesterol 02/11/24 Unknown History Allergy/AdvReac Type Severity Reaction Status Date / Time ciprofloxacin Allergy Intermediate Rash Verified 02/11/24 20:04 Surgical History S/P arterial stent Social History Smoking Status: Current every day smoker tobacco type: cigarettes alcohol intake: current alcohol intake frequency: 0-2 drinks per day Review of Systems (Anesthesia) ROS Narrative System reviewed and no additional complaints, except as documented.
[2024-02-12] MEDS: Cefazolin 2 GM in 0.9% Normal Saline (100mL Bag) 100 ML IV (12:40)
--- NOTE | 2024-02-12 13:04 | OP.PCM_ITS ---
Report of Operation Date of Procedure: 02/12/24 Pre-Operative Diagnosis: Left mid ureteral calculi with obstruction Post-Operative Diagnosis: The same Surgery/Procedure Performed:: Cystoscopy left retrograde pyelogram and left stent placement Description of Surgical Findings:: Indication this is a 69-year-old female who presented to hospital with severe pain severe left hydronephrosis leukocytosis and a UTI and obstructing stone in the mid left ureter so today were to place a stent to unblock the kidney continue clear out the infection and then we will get her set up for outpatient surgery to laser the stone in a separate setting once her infection is cleared. Patient was taken back to the operating room after smooth induction of anesthesia she was placed in dorsolithotomy position. Went of the bladder with a 21 Mauritian rigid cystourethroscope identified the left ureteral orifice cannulated with a wire I went over the wire and look like angulated in the ureter so then put a Pollick catheter performed retrograde pyelogram can see that there was a severe angulation of the ureter I then put the wire past this area was able to get past and straighten out passed a stone and then I put a Pollick catheter for further high up in the kidney again injected contrast and could see the delineation of the anatomy was severely hydronephrotic left kidney but coiled wire up in the kidney and over the wire placed a stent is a 6 Mauritian by 26 cm stent was draining well in good position left the string of the stent but cut it short to prevent extraction and the patient's anesthetic was reversed bladder was drained and takeback to PACU in stable condition plan to set her up for laser of the stone later on. Surgeon: Wang Shetty Type of Anesthesia: General Drains: stent 6 fr Admit VTE Documentation VTE Present on Admission: No VTE Mechan Device Prophylaxis: SCD's VTE Pharm Prophylaxis ordered?: No
--- NOTE | 2024-02-12 13:22 | PCM.POST.ANE ---
Anesthesia: Postop Eval I Current Vital Signs Temperature: 97.7 F Pulse Rate: 85 Blood Pressure: 133/69 Respiratory Rate: 17 Pulse Ox: 94 Assessment Airway patent: Yes Spontaneous unlabored respirations: Yes nausea: No Vomiting: No Anesthesia Complication: No Fluid Hydration Crystalloid volume administer (ml): 250 Total IV fluid infused: 250 Progress Note Anesthesia document: Postop Eval 1 completed: Yes
--- NOTE | 2024-02-12 13:23 | POSTOPAN2_ITS ---
Anesthesia Postop Eval I Sum Postop Eval Completion status Anesthesia document: Postop Eval 1 completed: Yes Anesthesia Postop Eval I Summary Anesthesia Postop Eval I Summary: Anesthesia Postop Eval I: Assessment Summary Airway patent Yes 02/12/24 13:22 [email or web address] Spontaneous unlabored Yes 02/12/24 13:22 [email or web address] respirations Mental status nausea No 02/12/24 13:22 [email or web address] Vomiting No 02/12/24 13:22 [email or web address] Anesthesia Postop Eval I: Fluid Summary Crystalloid volume administer 250 02/12/24 13:22 [email or web address] (ml) Colloids volume administered ( ml) Blood Product volume administered (ml) Total IV fluid infused 250 02/12/24 13:22 [email or web address] Anesthesia Postop Eval I: Summary Notes Anesthesia Complication No 02/12/24 13:22 [email or web address] Anesthesia Complication Comment: Post-operative progress note Anesthesia: Postop Eval II Evaluation Mental status: Awake Pain Level: 0 nausea: No Vomiting: No
--- NOTE | 2024-02-12 13:23 | PCM.POSTANE2 ---
Anesthesia Postop Eval I Sum Postop Eval Completion status Anesthesia document: Postop Eval 1 completed: Yes Anesthesia Postop Eval I Summary Anesthesia Postop Eval I Summary: Anesthesia Postop Eval I: Assessment Summary Airway patent Yes 02/12/24 13:22 [email or web address] Spontaneous unlabored Yes 02/12/24 13:22 [email or web address] respirations Mental status nausea No 02/12/24 13:22 [email or web address] Vomiting No 02/12/24 13:22 [email or web address] Anesthesia Postop Eval I: Fluid Summary Crystalloid volume administer 250 02/12/24 13:22 [email or web address] (ml) Colloids volume administered ( ml) Blood Product volume administered (ml) Total IV fluid infused 250 02/12/24 13:22 [email or web address] Anesthesia Postop Eval I: Summary Notes Anesthesia Complication No 02/12/24 13:22 [email or web address] Anesthesia Complication Comment: Post-operative progress note Anesthesia: Postop Eval II Evaluation Mental status: Awake Pain Level: 0 nausea: No Vomiting: No
--- NOTE | 2024-02-12 15:02 | PCM.DC ---
Discharge Instructions Diet Discharge Diet: No restrictions Activity Discharge Activity: Return to Normal Activity Weight Bearing Status: Full weight bearing Follow Up Care Test Results: Test results from this visit will be discussed in further detail at your follow-up appointment, if applicable. Discharge Plan Admission Admit Date/Time: 02/12/24 00:16 Primary Reason for Your Visit: left ureteral stone/obstruction Attending Provider: Taurus Garner Primary Care Provider: Care Physician,No Primary Consulting Providers: Seven Tracy; Wang Shetty Discharge Orders/Prescriptions Prescriptions: New cephalexin 500 mg tablet 500 mg PO Q8H Qty: 30 0RF Rx Instructions: start on 02/12/24 Continued clopidogrel 75 mg tablet 75 mg PO DAILY rosuvastatin [Crestor] 40 mg tablet 10 mg PO DAILY hydrocodone-acetaminophen 5-325 mg tablet 1 tab PO Q6H PRN PRN (Reason: Pain) 3 Days Qty: 10 0RF Referrals / Follow Up: Wang Shetty MD [Med Staff - Active Staff] - See Referral Note (office will call to set up appointment-call the office on if they have not contacted you) Care Physician,No Primary [Primary Care Provider] - NOT,DEFINED [Non-Staff] - Disposition Disposition (needs filled in before D/C Order can be placed): Home, Self Care
--- NOTE | 2024-02-12 15:09 | DS.PCM_ITS ---
Providers Date of Admission: 02/12/24 Date of Discharge: 02/12/24 Primary Care Physician: Kalyn Primary Care Phys Consultations 02/12/24 00:50 Consult: Urology Routine Consulting Provider: Wang Shetty Reason for Consult: ~5 mm Left Renal Stone with Severe Hydroureteronephrosis. EMERGENT Consult: No MD Notified: Yes Date Notified: 02/12/24 Time Notified: 07:49 Method of Notification: Verbal Reason For Visit: ~5 MM LEFT RENAL CALCULUS WITH SEVERE Diagnosis Discharge Diagnosis (1) Hydroureter, left: Status: Acute Code(s): N13.4 - Hydroureter (2) Leukocytosis: Status: Acute Code(s): D72.829 - Elevated white blood cell count, unspecified Qualifiers: Leukocytosis type: unspecified Qualified Code(s): D72.829 - Elevated white blood cell count, unspecified Plan 1. Left ureteral calculus with left hydronephrosis #2 acute cystitis with E. coli #3 peripheral arterial disease #4 hyperlipidemia #5 hypokalemia Medications at Discharge Home Medications hydrocodone-acetaminophen 5-325mg 5mg-325mg 1 tab PO Q6H PRN PRN Pain 3 days #10 TABLETS 01/24/24 clopidogrel 75 mg tablet 75 mg PO DAILY blood thinner 02/11/24 rosuvastatin 40 mg tablet (Crestor) 10 mg PO DAILY cholesterol 02/11/24 cephalexin 500 mg tablet 500 mg PO Q8H #30 tabs 02/12/24 Hospital Course Operations None Procedures None Summary of Care Provided Minutes Spent on Discharge: 31 Hospital Course: This 69-year-old white female was seen in the emergency room at [facility], patient had been seen in the emergency department here approximately 2 weeks ago and diagnosed with a kidney stone and started on antibiotics. She had been traveling through [place] to visit her sister and then she went to [place] to visit another friend. In [place] she continued to have pain and was seen in the hospital and called back 2 days ago and diagnosed with a 9 mm stone in the left ureter with hydronephrosis. There was no urology coverage in that hospital and the patient decided to come back to [place] for treatment. Patient was admitted to [place] [address], placed on IV fluids and placed on IV antibiotics. Patient's white blood cell count was 12.1, chemistry profile was remarkable for a potassium of 3.1. Patient was seen in consultation by urology and on 02/12/2024 she underwent stent placement in the left ureter. On 02/12/2024, patient was seen and examined: On examination she appeared in good health and spirits, she does not appear to be in any distress. Vital signs as documented. Skin warm and dry and without overt rashes. Neck without JVD, thyroid appears normal, trachea is midline, neck is supple. Lungs clear, normal air movement was noted. Heart exam notable for regular rhythm, normal sounds and absence of murmurs, rubs or gallops. Abdomen unremarkable and without evidence of organomegaly, masses, or abdominal aortic enlargement, bowel sounds are present in all 4 quadrants, no abdominal tenderness was noted. Extremities nonedematous, no cyanosis was noted, no clubbing was noted. Neuro: Cranial nerves II through XII are grossly intact, no focal motor deficits were noted, sensation to light touch and pinprick is intact, motor exam 5/5 throughout. Psych: Patient is alert and oriented x3, she does not appear anxious or depressed, she does not appear agitated. On 02/12/2024, patient was seen and examined and felt to be in stable condition for discharge home. Weight / BMI Weight Weight: 72.83 kg Body Mass Index (BMI) 25.2 ABG / Lab / Microbiology Data 02/12/24 04:17 02/12/24 04:17 Laboratory: Laboratory Results - last 24 hr 02/11/24 20:42: WBC 12.1 H, RBC 4.31, Hgb 13.3, Hct 39.7, MCV 92.1, MCH 30.9, MCHC 33.5, RDW Std Deviation 43.0, RDW Coeff of Deniz 12.6, Plt Count 225, MPV 9.9, Immature Gran % (Auto) 0.500, Neut % (Auto) 78.2 H, Lymph % (Auto) 12.4 L, [place] % (Auto) 7.9, Eos % (Auto) 0.5, Baso % (Auto) 0.5, Absolute Neuts (auto) 9.5 H, Absolute Lymphs (auto) 1.51, Nucleated RBC % 0, Sodium 135 L, Potassium 3.1 L, Chloride 99, Carbon Dioxide 27.0, Anion Gap 9, BUN 14, Creatinine 0.92, Estim Creat Clear Calc 56.12, Est GFR (MDRD) Af Amer 78, Est GFR (MDRD) Non-Af 64, BUN/Creatinine Ratio 15.2, Glucose 121 H, Lactic Acid 1.4, Calcium 9.1, Urine Color Yellow, Urine Clarity Sl. Cloudy, Urine pH 6.5, Ur Specific [employer] 1.010, Urine Protein Negative, Urine Glucose (UA) Normal, Urine Ketones Negative, Urine Occult Blood 25 H, Urine Nitrite Positive H, Urine Bilirubin Negative, Urine Urobilinogen Normal, Ur Leukocyte Esterase 500 H, Urine RBC 0-5 SEEN, Urine WBC 10-25 SEEN, Ur Squamous Epith Cells 0-5 SEEN, Urine Bacteria 2+, Urine Mucus 0 SEEN 02/12/24 04:17: WBC 9.3, RBC 4.28, Hgb 13.0, Hct 39.4, MCV 92.1, MCH 30.4, MCHC 33.0, RDW Std Deviation 42.6, RDW Coeff of Deniz 12.7, Plt Count 209, MPV 10.3, Immature Gran % (Auto) 0.500, Neut % (Auto) 69.9, Lymph % (Auto) 18.2 L, [place] % (Auto) 8.3, Eos % (Auto) 2.1, Baso % (Auto) 1.0, Absolute Neuts (auto) 6.5, Absolute Lymphs (auto) 1.70, Nucleated RBC % 0, Sodium 136, Potassium 3.4 L, Chloride 104, Carbon Dioxide 26.0, Anion Gap 6, BUN 14, Creatinine 0.66, Estim Creat Clear Calc 64.54, Est GFR (MDRD) Af Amer 113, Est GFR (MDRD) Non-Af 94, B UN/Creatinine Ratio 21.1 H, Glucose 105, Calcium 8.6, Phosphorus 3.1, Magnesium 2.2, Total Bilirubin 0.50, AST 29, ALT 27, Alkaline Phosphatase 73, Total Protein 6.1 L, Albumin 2.4 L, Globulin 3.7, Albumin/Globulin Ratio 0.6 L, TSH 4.66 H Microbiology: Microbiology 02/11/24 20:42 Urine, Clean Catch Urine Culture - Preliminary Presumptive E. coli Radiography Diagnostic Testing: Radiology Impression Abdomen/Pelvis CT 02/11/24 20:32 IMPRESSION: 5 mm obstructing stone again noted within the middle third of the left ureter; this ureteral stone has moved distally by about 2 cm since the prior CT of 01/24/2024. Degree of left-sided hydronephrosis has increased with severe left hydronephrosis now present. Additional nonobstructing stone noted within the dilated left ureter. Punctate nonobstructing stone noted within each intrarenal collecting system. Cholelithiasis without evidence for cholecystitis. Electronically Signed: Francisco Benedict MD at 22:50 EDT , D/C Instructions Discharge Diet: No restrictions Weight Bearing Status: Full weight bearing Meaningful Use Info Meaningful Use Meaningful Use Diagnoses (Choose all that apply): None applicable Ischemic Stroke Statin Dosing Therapy Reference: STATIN DOSE THERAPY REFERENCE: * Patients > 75 years receive moderate or high dose statin therapy. * Patients 75 years or YOUNGER should receive HIGH intensity statin dose unless contraindicated. You will be required to document reason for non-treatment if statin daily dose does not meet guidelines. HIGH DOSE STATIN THERAPY DAILY Atorvastatin > than or = to 40 mg Rosuvastatin > than or = to 20 mg Amlodipine + Atorvastatin > than or = to 2.5/40 mg Ezetimibe + Simvastatin 10/80 mg Simvastatin 80mg Discharge Plan Admission Admit Date/Time: 02/12/24 00:16 Primary Reason for Your Visit: left ureteral stone/obstruction Attending Provider: Taurus Garner Primary Care Provider: Care Physician,No Primary Consulting Providers: Seven Tracy; Wang Shetty Discharge Orders/Prescriptions Prescriptions: New cephalexin 500 mg tablet 500 mg PO Q8H Qty: 30 0RF Rx Instructions: start on 02/12/24 Continued clopidogrel 75 mg tablet 75 mg PO DAILY rosuvastatin [Crestor] 40 mg tablet 10 mg PO DAILY hydrocodone-acetaminophen 5-325 mg tablet 1 tab PO Q6H PRN PRN (Reason: Pain) 3 Days Qty: 10 0RF Referrals / Follow Up: Wang Shetty MD [Med Staff - Active Staff] - See Referral Note (office will call to set up appointment-call the office on if they have not contacted you) Care Physician,No Primary [Primary Care Provider] - NOT,DEFINED [Non-Staff] - Disposition Disposition (needs filled in before D/C Order can be placed): Home, Self Care Charges/Coding Visit Charges Inpatient E&M: 88919 Disch Hosp >30min
--- NOTE | 2024-02-12 15:20 | CASEMGMT ---
SONU SOLITARIO Assessment: Face to Face with pt for initial transition planning/care coordination assessment. RN KASSI introduced self and role at [facility], pt voices understanding and consents to assessment. Pt is A&O x4 and answers all questions appropriately at this time. Pt sitting up in chair in no distress with friend sitting at bedside. Pt agreeable to discussing DC plan with friend in room. Care providers, pharmacy, and demographics verified/updated. Admitting Dx: 5 mm L renal calculus with severe hydroureteronephoris PCP: Dr. Jc ramachandran from [place] Specialists: Denies Preferred Pharmacy: [facility] Insurance: [facility] Medicare Prescription Benefit: yes LNOK: Bobo, Friend. Benjy, Living Arrangements: Pt lives alone. Recently sold house and [place] [facility] [place] [facility]. ADLs: Independent Transportation: Pt drives self and denies concerns with transportation. DME: walker, cane HHC/SNF: Denies Hx of. Pt states no concerns with going home at time of dc. Pt states no further concerns/needs. CM to follow. Advised pt to ask CM if any further question/concerns/needs arise, voices understanding. Pt Goal: Home Plan: Home [facility] ASCENCIO CM
== END 2024-02-12 15:28 | disposition home or self-care (01) | DRG 661 ==
LOC: ED 02-12 00:12 → MS3 02-12 00:41
PROVIDERS: Urology; Admitting Provider Internal Medicine; Emergency Provider Emergency Medicine; Visit Provider Internal Medicine
PROC: 0T778DZ Dilation of Left Ureter with Intraluminal Device, Via Natural or Artificial Opening Endoscopic (ICD-10-PCS; CPT 52332; principal; 2024-02-12 12:35)
DX: N13.6 Pyonephrosis (principal); B96.20 Unspecified Escherichia coli [E. coli] as the cause of diseases classified elsewhere; I73.9 Peripheral vascular disease, unspecified; E78.5 Hyperlipidemia, unspecified; E87.6 Hypokalemia; F17.210 Nicotine dependence, cigarettes, uncomplicated; Z79.02 Long term (current) use of antithrombotics/antiplatelets; Z79.899 Other long term (current) drug therapy; Z79.891 Long term (current) use of opiate analgesic; Z88.1 Allergy status to other antibiotic agents; Z95.820 Peripheral vascular angioplasty status with implants and grafts
CPT/HCPCS: 36415; 74176; 76000; 80048; 80053; 81001; 83605; 83735; 84100; 84443; 85025; 87040; 87086; 87088; 87186; 99284; J7030; J7050; A4216; C1769; C2617; J2405

== ENCOUNTER → 2024-02-20 | Outpatient (CLI) | payer MEDICARE, SELFPAY ==
--- NOTE | 2024-02-20 09:17 | CT_ITS ---
STUDY: CT ABDOMEN AND PELVIS WITHOUT CONTRAST REASON FOR EXAM: Female, 69 years old. CALCULUS OF URETER. Prior placement of a left double-J stent catheter. RADIATION DOSAGE (If Supplied By Facility): CTDIvol = ( 8.37 ) mGy, DLP = ( 428.45 ) mGycm TECHNIQUE: Transaxial images were obtained from the dome of the diaphragm to the symphysis pubis without oral contrast, and without intravenous contrast. Sagittal and coronal images were reconstructed. Individualized dose optimization techniques were used for this CT. COMPARISON: Comparison is made with prior study dated February 11, 2024. FINDINGS: Minimal degree of residual increased markings at the lung bases although there has been a moderate degree of improvement. Stable appearance of the small lipoma of the intra-atrial septum of the heart. Normal liver. Tiny gallstones are seen in the gallbladder lumen. Normal spleen. Normal pancreas. Normal bilateral adrenal glands. Stable punctate calculus in the lower pole calyx of the right kidney. A left-sided double-J stent catheter is seen with the proximal tip in the left renal pelvis and distal tip in the bladder. Stable 3 mm nonobstructive calculus in the posterior lower pole calyx of the left kidney. Minimal hydronephrosis as compared to prior study. Normal visualized stomach. Normal small intestine. There are scattered colonic diverticula consistent with diverticulosis. The appendix is visualized and appears normal. There is diffuse atherosclerotic calcification of the abdominal aorta, without a demonstrated aneurysm. Stents are once again seen in the common iliac arteries bilaterally. Normal inferior vena cava. Normal retroperitoneum. Normal urinary bladder. Normal abdominal wall. There are mild degenerative changes of the visualized lumbar spine. CT/Abdomen/Pelvis without Cont IMPRESSION: Status post left double-J stent catheter placement. Minimal residual left hydronephrosis. Punctate nonobstructive bilateral intrarenal calculi. Electronically Signed: Abdiaziz Rdz MD at 10:03 EDT ,
== END | disposition home or self-care (01) ==
LOC: CT 09:08
PROVIDERS: Referring Provider Urology; Visit Provider Urology
DX: N20.1 Calculus of ureter (principal)
CPT/HCPCS: 74176

== ENCOUNTER 2024-02-21 07:51 | Day surgery (SDC) | payer MEDICARE, SELFPAY ==
[2024-02-21] VITALS (8 sets, daily range): BP systolic 143–164; BP diastolic 60–83; PULSE 62–79; RESP 16–18; TEMP 36.4–37.6; O2SAT 92–99; BMI 25.2
[2024-02-21] MEDS: Lactated Ringers 1,000 ML 15 ML IV (08:19)
--- NOTE | 2024-02-21 08:29 | PCM.PRE.AN2 ---
ASA Classification* ASA Classification ASA Classification: 2 Assessment & Plan Anesthesia* Anesthesia Assessment Anesthesia Assessment: Discussed sedation and/or anesthesia options, risks, benefits, and alternatives with patient/parents/legal guardian/POA. Questions invited. The patient/parents/legal guardian/POA seems to understand and agrees to proceed with anesthesia plan. Reviewed the physical assessment, medical history, allergy history and patient home medications list prior to surgery/procedure/anesthetic and documented any changes. Performed airway and anesthesia risk assessments. Anesthesia Type Anesthesia Type: General Anesthesia Focused Assessment* Temperature: 97.6 F Pulse Rate: 79 Blood Pressure: 149/74 Respiratory Rate: 16 Pulse Ox: 96 Airway Assessment Mouth opens: >3 cm Mallampati Score: II Focused Labs Anesthesia Preop lab: CBC WBC 9.3 K/mm3 (4.4-11.0) 02/12/24 04:17 RBC 4.28 M/mm3 (4.2-5.4) 02/12/24 04:17 Hgb 13.0 g/dL (12.0-15.0) 02/12/24 04:17 Hct 39.4 % (37-47) 02/12/24 04:17 Plt Count 209 K/mm3 (150-450) 02/12/24 04:17 CHEMISTRY Potassium 3.4 mmol/L (3.5-5.1) L 02/12/24 04:17 Sodium 136 mmol/L (136-145) 02/12/24 04:17 Magnesium 2.2 mg/dL (1.6-2.6) 02/12/24 04:17 Phosphorus 3.1 mg/dL (2.5-4.9) 02/12/24 04:17 BUN 14 mg/dL (7-18) 02/12/24 04:17 Creatinine 0.66 mg/dL (0.55-1.02) 02/12/24 04:17 Glucose 105 mg/dL (74-106) 02/12/24 04:17 TSH 4.66 uIU/mL (0.358-3.74) H 02/12/24 04:17 COAG Pre-Assessment Diagnosis/Proposed Procedure Planned Operative Procedure(s): (L) Cysto,Ureteroscopy,Laser,Stent Anesthesia History Anesthesia History - ict sales representative: Anesthesia History - ict sales representative Hx Hospitalization Yes: KIDNEY STONE, STENT 02/14/24 14:12 2023 Any Problems With Anesthesia No 02/14/24 14:12 Cholinesterase deficiency No 02/14/24 14:12 You/Your Family Experience No 02/14/24 14:12 fever (hyperthermia) with Relationship Recent Exposure to Contagious No 02/21/24 08:10 Disease Does patient have nerve No 02/14/24 14:12 stimulator Patient instructed to have device shut off --Does patient have Pacemaker No 02/21/24 08:10 or ICD? When Was Last Pacemaker Check QUESTION #4 FULL TEXT: You/Your Family Experience fever (hyperthermia) with Anesthesia Last Oral Intake Last Oral intake: Last Oral Intake NPO since 00:00 02/21/24 08:10 Meds taken in AM with sips of water? Meds patient instructed to take am of surgery PONV PONV - ict sales representative: PONV - ict sales representative Female Yes 02/14/24 14:12 HX of Motion Sickness No 02/14/24 14:12 HX of N/V After Surgery No 02/14/24 14:12 Non-Smoker No 02/14/24 14:12 Duration of Surgery greater No 02/14/24 14:12 than 60 minutes Number of Risk Factors 1 02/14/24 14:12 PONV Score Low Risk 02/14/24 14:12 Height & Weight Height & Weight: Anesthesia: Height & Weight Height 5 ft 7 in 02/21/24 08:10 Weight: 73.028 kg 02/21/24 08:10 Body Mass Index (BMI) 25.2 02/21/24 08:10 Respiratory Assessment Respiratory Assessment - ict sales representative: Respiratory Tract Infection Hx - ict sales representative Hx Respiratory Tract Infection No 02/14/24 14:12 STOP Sleep Apnea STOP Sleep Apnea - ict sales representative: STOP Sleep Apnea - ict sales representative Hx Hypertension No 02/14/24 14:12 Hx Sleep Apnea No 02/14/24 14:12 CPAP BIPAP Do you snore loudly (louder No 02/14/24 14:12 than talking or can be heard Do you often feel tired/ No 02/14/24 14:12 fatigued/ sleepy during daytime? Has anyone observed you stop No 02/14/24 14:12 breathing during sleep? STOP Results Negative 02/14/24 14:12 QUESTION #5 FULL TEXT : Do you snore loudly (louder than talking or can be heard through closed doors)? Tobacco Use History Tobacco Use History - ict sales representative: Tobacco Use History - ict sales representative Tobacco Use Smoking Status Current every day smoker 02/14/24 14:12 Hx Tobacco Use Yes 02/14/24 14:12 Years Smoking Packs Smoked per Day 0.5 02/14/24 14:12 Smoking Cessation Date was within the last 15 years Hx Smoking Cessation Date Hx Smoking Cessation No 02/14/24 14:12 Counseling Hematologic Medial History Hematologic Hx - ict sales representative: Hematologic Medical Hx - painter plate Hx of Blood Transfusion No 02/14/24 14:12 Hx of Transfusion in last 3 No 02/14/24 14:12 Months Date of Last Transfusion (if within last 3 months) Ever experience any problems No 02/14/24 14:12 with transfusion(s)? Specify any problems Hx of Preganancy in last 3 N/A 02/14/24 14:12 Months Nurse Filling Out Transfusion NBUCHER 02/14/24 14:12 & Questions: Date: 02/14/24 02/14/24 14:12 Time: 14:14 02/14/24 14:12 Patient unable to answer at this time (ie. confused, unrespo /Reproduction History /Reproductive History - ict sales representative: /Reproductive Hx- ict sales representative Hx Now No 02/14/24 14:12 Gestational Age (in weeks): EDC: Hx Hx Para Hx Section SAB No 02/14/24 14:12 Active Medications Active Medications: Current Medications Generic Name Dose Route Start Last Admin Trade Name Freq PRN Reason Stop Dose Admin Cefazolin Sodium 2 gm/ Sodium 110 mls @ 150 mls/hr 02/21/24 10:05 Chloride IV 02/21/24 10:48 PREOP ONE Lactated Ringer's 1,000 mls @ 15 mls/hr 02/21/24 08:00 02/21/24 08:19 IV 15 mls/hr .Q48H ELISHA Administration PFSH Medical History Post-menopausal Rheumatoid arthritis High cholesterol Chronic cough Leg cramps Smoker History of stent insertion of renal artery Hydroureter, left Leukocytosis Acute UTI Urolithiasis Peripheral arterial disease Kidney stones Home Medications ?Medication ?Instructions ?Recorded ?Last Taken ?Type hydrocodone-acetaminophen 5-325mg 1 tab PO Q6H PRN PRN Pain 3 days 01/24/24 02/17/24 Rx 5mg-325mg #10 TABLETS clopidogrel 75 mg tablet 75 mg PO DAILY blood thinner 02/11/24 02/14/24 History rosuvastatin 40 mg tablet (Crestor) 10 mg PO DAILY cholesterol 02/11/24 Unknown History cephalexin 500 mg tablet 500 mg PO Q8H #30 tabs 02/12/24 Unknown Rx Allergy/AdvReac Type Severity Reaction Status Date / Time ciprofloxacin Allergy Intermediate Rash Verified 02/21/24 08:09 Surgical History History of cataract extraction with lens replacement History of tonsillectomy S/P arterial stent Social History Smoking Status: Current every day smoker tobacco type: cigarettes alcohol intake: current alcohol intake frequency: 0-2 drinks per day Review of Systems (Anesthesia) ROS Narrative System reviewed and no additional complaints, except as documented.
[2024-02-21] MEDS: Cefazolin 2 GM in 0.9% Normal Saline (100mL Bag) 100 ML IV (12:47)
--- NOTE | 2024-02-21 13:11 | PCM.HP.STD ---
HPI - General General Date of Service: 02/21/24 Chief Complaint: Left ureteral calculi status post stent HPI Narrative LEROY LOPEZ, is a 69 F who presents patient presents for lasering of the stone in the left side and stent removal [facility] Medical History (Updated 02/21/24 @ 13:[address] Wang Shetty MD) Urolithiasis Post-menopausal Rheumatoid arthritis High cholesterol Chronic cough Leg cramps Smoker History of stent insertion of renal artery Hydroureter, left Leukocytosis Acute UTI Peripheral arterial disease Kidney stones Home Medications ?Medication ?Instructions ?Recorded ?Last Taken ?Type hydrocodone-acetaminophen 5-325mg 1 tab PO Q6H PRN PRN Pain 3 days 01/24/24 02/17/24 Rx 5mg-325mg #10 TABLETS clopidogrel 75 mg tablet 75 mg PO DAILY blood thinner 02/11/24 02/14/24 History rosuvastatin 40 mg tablet (Crestor) 10 mg PO DAILY cholesterol 02/11/24 Unknown History cephalexin 500 mg tablet 500 mg PO Q8H #30 tabs 02/12/24 Unknown Rx cephalexin 500 mg capsule 1,000 mg (2 x 500 mg) PO BID #6 02/21/24 Unknown Rx caps oxycodone 5 mg tablet 5 mg PO Q6H PRN pain 7 days #14 02/21/24 Unknown Rx tabs Allergy/AdvReac Type Severity Reaction Status Date / Time ciprofloxacin Allergy Intermediate Rash Verified 02/21/24 08:09 Surgical History History of cataract extraction with lens replacement History of tonsillectomy S/P arterial stent Social History Smoking Status: Current every day smoker tobacco type: cigarettes alcohol intake: current alcohol intake frequency: 0-2 drinks per day Vital Signs Vital Signs Vital Signs: 02/21/24 08:10 02/21/24 08:10 02/21/24 08:29 Temperature 97.6 F L 97.6 F L Temperature Source Temporal Pulse Rate 79 79 Respiratory Rate 16 16 Respiratory Pattern Normal Blood Pressure 149/74 H 149/74 H Blood Pressure Mean 99 Blood Pressure Source Monitor Blood Pressure Position Semi-Fowlers Blood Pressure Location Right Arm Pulse Ox 96 96 Oxygen Delivery Method Room Air Weight Weight: 73.028 kg Body Mass Index (BMI) 25.2
--- NOTE | 2024-02-21 13:12 | OP.PCM_ITS ---
Report of Operation Date of Procedure: 02/21/24 Pre-Operative Diagnosis: Left ureteral calculi Post-Operative Diagnosis: The same Surgery/Procedure Performed:: Cystoscopy left ureteroscopy laser lithotripsy stone and removal of left stent Description of Surgical Findings:: Patient was taken back to the operating room at this with duction of anesthesia she was placed in dorsolithotomy position. Went of the bladder with a 21 [place] rigid cystourethroscope grabbed the existing stent pulled out the meatus put a wire up on the left side over the wire I went in with a flexible ureteroscope was able to get to the kidney inspected upper pole midpole lower pole the kidney tiny fragment seen these were lasered with the laser fiber I then worked my way down the ureter and encountered a 7 mm stone in the mid ureter I then used laser lithotripsy and lasered the stone little tiny pieces after the stone was completely lasered using a 328 ?m laser fiber and the thulium laser, then I worked my way down the ureter and did not replace the stent as a had a nice wide open channel and the stone was completely lasered. Patient's anesthetic was reversed she was taken back to the PACU in good condition. Surgeon: Wang Shetty Type of Anesthesia: General Drains: none Estimated Blood Loss (mL): 0 Admit VTE Documentation VTE Present on Admission: No VTE Mechan Device Prophylaxis: SCD's VTE Pharm Prophylaxis ordered?: No
--- NOTE | 2024-02-21 13:13 | PCM.DC ---
Discharge Instructions Diet Discharge Diet: No restrictions Activity Discharge Activity: Return to Normal Activity and May Not Drive (while taking narcotic pain medications.) Dressing / Incision Call your doctor if you observe: Fever of 101 or Higher Follow Up Care Please Follow Up With: Wang Shetty MD When: Call [phone] for an appointment Test Results: Test results from this visit will be discussed in further detail at your follow-up appointment, if applicable. Discharge Plan Admission Primary Reason for Your Visit: laser stone Attending Provider: Wang Shetty Primary Care Provider: Care Physician,No Primary Instructions Print Language: Kinyarwanda Discharge Orders/Prescriptions Prescriptions: New cephalexin 500 mg capsule 1,000 mg PO BID Qty: 6 0RF oxycodone 5 mg tablet 5 mg PO Q6H PRN (Reason: pain) 7 Days Qty: 14 0RF Continued clopidogrel 75 mg tablet 75 mg PO DAILY rosuvastatin [Crestor] 40 mg tablet 10 mg PO DAILY cephalexin 500 mg tablet 500 mg PO Q8H Qty: 30 0RF Rx Instructions: start on 02/12/24 hydrocodone-acetaminophen 5-325 mg tablet 1 tab PO Q6H PRN PRN (Reason: Pain) 3 Days Qty: 10 0RF Referrals / Follow Up: Wang Shetty MD [Med Staff - Active Staff] - Care Physician,No Primary [Primary Care Provider] - Disposition Disposition (needs filled in before D/C Order can be placed): Home, Self Care
--- NOTE | 2024-02-21 13:20 | PCM.POST.ANE ---
Anesthesia: Postop Eval I Current Vital Signs Temperature: 99.6 F Pulse Rate: 62 Blood Pressure: 150/83 Respiratory Rate: 16 Pulse Ox: 99 Oxygen Delivery Method: Room Air Assessment Airway patent: Yes Spontaneous unlabored respirations: Yes Mental status: Asleep nausea: No Vomiting: No Anesthesia Complication: No Fluid Hydration Crystalloid volume administer (ml): 600 Total IV fluid infused: 600 Progress Note Anesthesia document: Postop Eval 1 completed: Yes
--- NOTE | 2024-02-21 14:55 | POSTOPAN2_ITS ---
Anesthesia Postop Eval I Sum Postop Eval Completion status Anesthesia document: Postop Eval 1 completed: Yes Anesthesia Postop Eval I Summary Anesthesia Postop Eval I Summary: Anesthesia Postop Eval I: Assessment Summary Airway patent Yes 02/21/24 13:21 MANUFACTURING QUALITY [email or web address] Spontaneous unlabored Yes 02/21/24 13:21 MANUFACTURING QUALITY TECHNICIAN.[email or web address] respirations Mental status Asleep 02/21/24 13:21 MANUFACTURING QUALITY TECHNICIAN.[email or web address] nausea No 02/21/24 13:21 MANUFACTURING QUALITY TECHNICIAN.KATHARINA Vomiting No 02/21/24 13:21 MANUFACTURING QUALITY TECHNICIAN.KATHARINA Anesthesia Postop Eval I: Fluid Summary Crystalloid volume administer 600 02/21/24 13:21 MANUFACTURING QUALITY TECHNICIAN.KATHARINA (ml) Colloids volume administered ( ml) Blood Product volume administered (ml) Total IV fluid infused 600 02/21/24 13:21 MANUFACTURING QUALITY TECHNICIAN.KATHARINA Anesthesia Postop Eval I: Summary Notes Anesthesia Complication No 02/21/24 13:21 OSEAS Anesthesia Complication Comment: Post-operative progress note Anesthesia: Postop Eval II Evaluation Mental status: Awake Pain Level: 0 nausea: No Vomiting: No
--- NOTE | 2024-02-21 14:55 | PCM.POSTANE2 ---
Anesthesia Postop Eval I Sum Postop Eval Completion status Anesthesia document: Postop Eval 1 completed: Yes Anesthesia Postop Eval I Summary Anesthesia Postop Eval I Summary: Anesthesia Postop Eval I: Assessment Summary Airway patent Yes 02/21/24 13:21 PUNCH MACHINE [email or web address] Spontaneous unlabored Yes 02/21/24 13:21 PUNCH MACHINE HAND.[email or web address] respirations Mental status Asleep 02/21/24 13:21 PUNCH MACHINE HAND.KATHARINA nausea No 02/21/24 13:21 PUNCH MACHINE HAND.KATHARINA Vomiting No 02/21/24 13:21 PUNCH MACHINE HAND.[email or web address] Anesthesia Postop Eval I: Fluid Summary Crystalloid volume administer 600 02/21/24 13:21 PUNCH MACHINE HAND.KATHARINA (ml) Colloids volume administered ( ml) Blood Product volume administered (ml) Total IV fluid infused 600 02/21/24 13:21 PUNCH MACHINE HAND.KATHARINA Anesthesia Postop Eval I: Summary Notes Anesthesia Complication No 02/21/24 13:21 OSEAS Anesthesia Complication Comment: Post-operative progress note Anesthesia: Postop Eval II Evaluation Mental status: Awake Pain Level: 0 nausea: No Vomiting: No
== END 2024-02-21 14:02 | disposition home or self-care (01) ==
LOC: SDC 07:52 → AC 07:57
PROVIDERS: Referring Provider Urology; Visit Provider Urology
PROC: 0TJ98ZZ Inspection of Ureter, Via Natural or Artificial Opening Endoscopic (ICD-10-PCS; CPT 52352; principal; 2024-02-21 09:55)
DX: N20.1 Calculus of ureter (principal); F17.210 Nicotine dependence, cigarettes, uncomplicated; E78.00 Pure hypercholesterolemia, unspecified; Z79.899 Other long term (current) drug therapy; Z79.02 Long term (current) use of antithrombotics/antiplatelets
CPT/HCPCS: 52353; J7120; C1769; J2405